=== PATIENT | male | born 1955 | race Caucasian/White ===

== ENCOUNTER 2020-05-09 07:10 | Outpatient (CLI) | payer BC, SELFPAY ==
[2020-05-09 07:39] LABS: Basophils Percent Auto 0.7 % (0.2-1.2); Eosinophils Absolute Auto 0.1 K/mm3 (0-0.3); Hematocrit 47.5 % (42.0-52.0); Hemoglobin 15.7 g/dL (14.0-18.0); Immature Granulocyte Absolute 0.03 K/mm3 (0.00-0.031); Immature Granulocyte Percent A 0.5 % (0-0.5); Lymphocytes Absolute Auto 2.26 K/mm3 (0.9-3.2); Lymphocytes Percent Auto 37.7 % (18.3-44.2); Mean Corpuscular HGB Conc 33.1 g/dl (32-36); Mean Corpuscular Hemoglobin 31.3 pg (26-34); Mean Corpuscular Volume 94.6 fl (80-100); Mean Platelet Volume 9.1 fl (7.4-10.4); Monocytes Absolute Auto 0.4 K/mm3 (0.1-0.6); Monocytes Percent Auto 7.3 % (2.6-8.5); Neutrophils Absolute Auto 3.1 K/mm3 (1.3-6.7); Neutrophils Percent Auto 51.8 % (45.5-73.1); Platelet Count Result 301 k/mm3 (150-375); Red Blood Count 5.02 M/mm3 (4.6-6.20); Red Cell Distribution Width 12.9 % (11.5-14.5)
[2020-05-09 07:55] LABS: Alanine Aminotransferase 61 U/L (4-50); Alkaline Phosphatase 83 U/L (38-126); Anion Gap 4 mmol/L (8-16); Aspartate Amino Transferase 43 U/L (17-59); Bilirubin,Total 0.6 mg/dL (0.2-1.3); Blood Urea Nitrogen 19 mg/dL (9-20); Calcium 9.2 mg/dL (8.4-10.2); Carbon Dioxide 31 mmol/L (22-30); Chloride 105 mmol/L (98-107); Estimated Glomerular Filt Rate > 60; Glucose 85 mg/dL (75-110); Potassium 4.5 mmol/L (3.4-5.0); Sodium 140 mmol/L (137-145)
== END 2020-05-09 07:11 | disposition home or self-care (01) ==
LOC: ANHLAB 07:11
PROVIDERS: Family Provider Internal Medicine; PCP Internal Medicine; Visit Provider Nurse Practitioner
DX: Z01.818 Encounter for other preprocedural examination (principal)
CPT/HCPCS: 36415; 80053; 85025

== ENCOUNTER 2020-05-12 11:56 | Outpatient (NON) | payer BC, SELFPAY ==
[2020-05-12 23:01] LABS: SARS-CoV-2 RNA PCR Negative
== END 2020-05-12 11:57 ==
LOC: ANHCOVIDDT 11:57
PROVIDERS: PCP Internal Medicine; Visit Provider Nurse Practitioner
DX: Z01.818 Encounter for other preprocedural examination (principal); Z20.822 Contact with and (suspected) exposure to COVID-19
CPT/HCPCS: C9803; U0003; U0005

== ENCOUNTER 2022-01-15 08:04 | Outpatient (CLI) | payer BC, SELFPAY ==
[2022-01-15 19:44] LABS: Basophils Percent Auto 0.5 % (0.2-1.2); Eosinophils Absolute Auto 0.1 K/mm3 (0-0.3); Eosinophils Percent Auto 1.8 % (0-4.4); Hematocrit 46.7 % (42.0-52.0); Hemoglobin 15.7 g/dL (14.0-18.0); Immature Granulocyte Absolute 0.02 K/mm3 (0.00-0.031); Immature Granulocyte Percent A 0.3 % (0-0.5); Lymphocytes Absolute Auto 2.66 K/mm3 (0.9-3.2); Lymphocytes Percent Auto 40.9 % (18.3-44.2); Mean Corpuscular HGB Conc 33.6 g/dl (32-36); Mean Corpuscular Hemoglobin 31.8 pg (26-34); Mean Corpuscular Volume 94.7 fl (80-100); Mean Platelet Volume 10.6 fl (7.4-10.4); Monocytes Absolute Auto 0.5 K/mm3 (0.1-0.6); Neutrophils Absolute Auto 3.2 K/mm3 (1.3-6.7); Neutrophils Percent Auto 48.5 % (45.5-73.1); Platelet Count Result 183 k/mm3 (150-375); Red Blood Count 4.93 M/mm3 (4.6-6.20); White Blood Count 6.5 K/mm3 (4.5-10.0)
[2022-01-15 19:50] LABS: Alanine Aminotransferase 37 U/L (6-50); Albumin Level 4.2 g/dL (3.5-5.1); Alkaline Phosphatase 81 U/L (38-126); Anion Gap 8 mmol/L (8-16); Aspartate Amino Transferase 49 U/L (17-59); Bilirubin,Total 1.1 mg/dL (0.2-1.3); Blood Urea Nitrogen 18 mg/dL (9-20); Calcium 8.8 mg/dL (8.4-10.2); Carbon Dioxide 28 mmol/L (22-30); Chloride 103 mmol/L (98-107); Cholesterol 175 mg/dL (0-200); Estimated Glomerular Filt Rate > 60; Glucose 74 mg/dL (65-110); HDL Direct 53 mg/dL; Potassium 4.2 mmol/L (3.4-5.0); Sodium 139 mmol/L (137-145); Triglycerides 69 mg/dL (<150)
[2022-01-15 20:01] LABS: LDL Cholesterol Direct 97 mg/dL
[2022-01-15 20:17] LABS: Prostate Specific Antigen 4.3 ng/mL (< OR = 4.0)
== END 2022-01-15 08:05 | disposition home or self-care (01) ==
LOC: ANHGOSHLAB 08:05
PROVIDERS: PCP Internal Medicine; Visit Provider Nurse Practitioner
DX: Z12.5 Encounter for screening for malignant neoplasm of prostate (principal); Z13.29 Encounter for screening for other suspected endocrine disorder; Z13.220 Encounter for screening for lipoid disorders; Z51.81 Encounter for therapeutic drug level monitoring; Z79.899 Other long term (current) drug therapy
CPT/HCPCS: 36415; 80053; 80061; 84153; 85025; G0103

== ENCOUNTER 2022-05-21 00:27 | Day surgery (SDC) | payer MEDICARE, SELFPAY ==
[2022-05-11 13:04] VITALS: BMI 22.8
--- NOTE | 2022-05-20 14:57 | PM.HPGS ---
History of Present Illness History of Present Illness Consent: Risks, benefits, and alternatives have been discussed and questions answered. Patient agrees to proceed with procedure. Chief complaint: neoplasm screening Narrative: Manish Kruse is a 66 year old male who was referred for colon cancer screening. His last colonoscopy was 10 years ago. Review of Systems Review of Systems: All systems reviewed & are unremarkable except as noted in HPI and below PMFSH Past Medical History Medical History Fractures Ulcer Surgical History Surgical History H/O cardiac radiofrequency ablation H/O knee surgery 2004 H/O shoulder surgery Family History Family History Father Malignant neoplasm of prostate Social History Social History Smoking status: Never smoker Alcohol intake: current Alcohol use details: once a week Substance use: never Substance use type: does not use Lack of Transportation: No Lack of Food: Never True Current Housing: I Have Housing Concerned About Future Housing: No Difficulty Paying Gas/Electric Bills: Decline to Answer Difficulty Paying for Meds: No Currently Unemployed: No Education: Trade/Vocational Certificate Difficulty w/ Childcare or Family Care: No Living arrangements: alone Spiritual care concerns: No Meds Home Medications and Allergies Home Medications Medication Instructions Recorded Confirmed Type No Home Medications 04/28/22 05/11/22 History Allergies Allergy/AdvReac Type Severity Reaction Status Date / Time No Known Allergies Allergy Verified 05/21/22 09:24 Exam Const: General: alert Orientation/consciousness: patient oriented x3 Resp: Auscultation: clear to auscultation bilaterally Cardio: Rhythm: regular rhythm GI: GI Palp: Yes Soft to palpation and No Tenderness to palpation present (GI) Neuro: General: patient oriented x3 Assessment and Plan Assessment and plan (1) Screening for colon cancer: Code(s): Z12.11 - Encounter for screening for malignant neoplasm of colon Status: Acute Assessment and Plan: Colonoscopy with possible biopsy or polypectomy or cautery or injection of substances.
[2022-05-21 09:25] VITALS: BP 123/88; PULSE 77; RESP 18; TEMP 36.5; O2SAT 98
--- NOTE | 2022-05-21 09:34 | P.PNAN_ITS ---
Anes - Initial Pre Proc Eval Procedure: Operation Date: 05/21/22 10:30 Proposed Procedures p Screening Colonoscopy - Flex Moore MD Date/Time: 05/21/22 09:34 Surgeon: Flex Moore MD Pre Op Diagnosis: neoplasm screening Patient Data Age: 66 Gender: M Height: 1.73 m Weight: 68 kg Last Vital Signs Temp 36.5 C 05/21/22 09:25 Pulse 77 05/21/22 09:25 Resp 18 05/21/22 09:25 BP 123/88 05/21/22 09:25 Pulse Ox 98 05/21/22 09:25 O2 Del Method Room Air 05/21/22 09:25 Allergies Allergy/AdvReac Type Severity Reaction Status Date / Time No Known Allergies Allergy Verified 05/21/22 09:24 Home Medications Medication Instructions Recorded Confirmed Type No Home Medications 04/28/22 05/11/22 History Patient hx anesthesia problems: none Family hx anesthesia problems: none Results Review: All pre-operative results and documents have been reviewed as part of the pre- operative evaluation. [facility] Past Medical History Medical History Fractures Ulcer Surgical History Surgical History H/O cardiac radiofrequency ablation H/O knee surgery 2004 H/O shoulder surgery Family History Family History Father Malignant neoplasm of prostate Social History Social History Smoking status: Never smoker Alcohol intake: current Alcohol use details: once a week Substance use: never Substance use type: does not use Lack of Transportation: No Lack of Food: Never True Current Housing: I Have Housing Concerned About Future Housing: No Difficulty Paying Gas/Electric Bills: Decline to Answer Difficulty Paying for Meds: No Currently Unemployed: No Education: Trade/Vocational Certificate Difficulty w/ Childcare or Family Care: No Living arrangements: alone Spiritual care concerns: No Anes - Eval Final PreProcedure Day of Procedure 05/21/22 09:34 Patient weight: normal Heart: regular rate and rhythm Lungs: clear to auscultation Airway: Mallampati scale class II and special considerations (loose right incisor) Neurological: alert and oriented Last oral intake: >/= 8 hours ASA classification: II Emergent: no Anesthetic plan: proceed Anesthesia type and monitoring: general GIVS and standard monitoring Results Review: All pre-operative results and documents have been reviewed as part of the pre- operative evaluation. Informed Consent: The patient's anesthetic plan and its attendant risks and benefits were discussed with the patient/family/POA. Questions were solicited and answers provided to the satisfaction of the patient/family/POA.
[2022-05-21] MEDS: LACTATED RINGERS 1,000 ML 150 ML IV CONT (09:35)
--- NOTE | 2022-05-21 09:36 | SUR.PREOP ---
ANESTHESIA MADE AWARE PT'S RIGHT FRONT TOOTH IS LOOSE, NO NEW ORDERS RECEIVED, ANESTHESIA SEEING PT.
[2022-05-21 10:48] VITALS: BP 116/76; PULSE 72; RESP 27; O2SAT 95
[2022-05-21 10:58] VITALS: BP 112/76; PULSE 66; RESP 27; O2SAT 95
[2022-05-21 11:08] VITALS: BP 126/76; PULSE 64; RESP 21; O2SAT 97
== END 2022-05-21 11:10 | disposition home or self-care (01) ==
PROVIDERS: PCP Internal Medicine; Visit Provider Internal Medicine Gastroenterology
PROC: 0DJD8ZZ Inspection of Lower Intestinal Tract, Via Natural or Artificial Opening Endoscopic (ICD-10-PCS; CPT 45378; principal; 2022-05-21 10:30)
DX: Z12.11 Encounter for screening for malignant neoplasm of colon (principal); K64.8 Other hemorrhoids
CPT/HCPCS: G0121; J2704; J7120

== ENCOUNTER 2022-05-25 14:13 | Outpatient (CLI) | payer MEDICARE, SELFPAY ==
--- NOTE | ~2022-05-25 | XR_ITS ---
EXAMINATION:XR_[id number]_CR DATE: 05/25/2022 14:24 INDICATION: Neck pain TECHNIQUE: AP, lateral, lateral swimmers and odontoid views of the cervical spine are provided. COMPARISON: 07/25/2013 FINDINGS: Alignment is normal. The odontoid process is intact. No fracture is identified. There is mo derate loss of intervertebral disc space height at C4-5, C5-6, and C6-7. Small degenerative osteophyt es project from the anterior endplates of multiple vertebral bodies. The vertebral body heights are m aintained. There is multilevel moderate facet and uncovertebral joint osteoarthritis. Prevertebral so ft tissues are normal. IMPRESSION: 1. Moderate cervical spondylosis without acute findings. Reviewed, dictated and finalized at location L. [employer]
== END 2022-05-25 14:14 ==
LOC: MICIMG 14:15
PROVIDERS: PCP Internal Medicine; Visit Provider Nurse Practitioner
DX: M47.892 Other spondylosis, cervical region (principal)
CPT/HCPCS: 72040

== ENCOUNTER 2022-07-05 12:30 | Outpatient (RCR) | payer MEDICARE, SELFPAY ==
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
--- NOTE | 2022-06-15 15:31 | PCPTNOTE ---
Patient arrived at appointment 45 minutes early and thought his appointment was sooner. Patient unable to stay for actually appointment time this date therefore canceled.
--- NOTE | 2022-06-28 11:09 | PCPTNOTE ---
Patient did not show up for scheduled appointment this date.
--- NOTE | 2022-07-09 15:36 | PCPTNOTE ---
Patient did not show up for scheduled re-evaluation this date. This is has last scheduled appointment. Call and left a voicemail to follow up with clinic. If we do not hear from him in a week he will be discharged.
--- NOTE | 2022-07-30 15:12 | PTOPDC ---
Assessment and note entered by Angie Rodas, PT, DPT Evaluation Information Assessment Status Discharge - Pt Not Present Diagnosis neck pain Onset 05/24/22 Subjective Information Called and LVM for patient on 07/09/22 for him to follow up regarding his progress, have not heard back from him. He will be discharged at this time. Assessment PT Clinical Summary Pt completed 5 visits of therapy from 06/09/22 to . He has not returned to therapy since and will now be discharged.
== END 2022-07-30 15:51 | disposition home or self-care (01) ==
LOC: ANHGOSHPT 12:30
PROVIDERS: PCP Internal Medicine; Visit Provider Nurse Practitioner
DX: M54.2 Cervicalgia (principal); V89.2XXA Person injured in unspecified motor-vehicle accident, traffic, initial encounter
CPT/HCPCS: 97014; 97110; 97112; 97140; 97161; 99199; G0283

== ENCOUNTER 2023-03-09 08:01 | Outpatient (CLI) | payer MEDICARE, SELFPAY ==
[2023-03-09 14:18] LABS: Basophils Percent Auto 0.3 % (0.2-1.2); Eosinophils Absolute Auto 0.1 K/mm3 (0-0.3); Eosinophils Percent Auto 1.5 % (0-4.4); Hematocrit 51.2 % (42.0-52.0); Hemoglobin 16.4 g/dL (14.0-18.0); Immature Granulocyte Absolute 0.08 K/mm3 (0.00-0.031); Immature Granulocyte Percent A 1.3 % (0-0.5); Lymphocytes Percent Auto 35.4 % (18.3-44.2); Mean Corpuscular Hemoglobin 31.2 pg (26-34); Mean Corpuscular Volume 97.3 fl (80-100); Mean Platelet Volume 10.5 fl (7.4-10.4); Monocytes Absolute Auto 0.5 K/mm3 (0.1-0.6); Monocytes Percent Auto 8.4 % (2.6-8.5); Neutrophils Absolute Auto 3.1 K/mm3 (1.3-6.7); Neutrophils Percent Auto 53.1 % (45.5-73.1); Platelet Count Result 192 k/mm3 (150-375); Red Blood Count 5.26 M/mm3 (4.6-6.20); White Blood Count 5.9 K/mm3 (4.5-10.0)
[2023-03-09 14:45] LABS: Alanine Aminotransferase 47 U/L (6-50); Albumin Level 4.2 g/dL (3.5-5.1); Alkaline Phosphatase 93 U/L (38-126); Anion Gap 10 mmol/L (8-16); Aspartate Amino Transferase 39 U/L (17-59); Bilirubin,Total 0.9 mg/dL (0.2-1.3); Blood Urea Nitrogen 18 mg/dL (9-20); Calcium 9.5 mg/dL (8.4-10.2); Carbon Dioxide 27 mmol/L (22-30); Chloride 102 mmol/L (98-107); Cholesterol 205 mg/dL (0-200); Estimated Glomerular Filt Rate > 60; Glucose 79 mg/dL (65-110); HDL Direct 51 mg/dL; Potassium 4.2 mmol/L (3.4-5.0); Sodium 139 mmol/L (137-145); Triglycerides 104 mg/dL (<150)
[2023-03-09 14:59] LABS: LDL Cholesterol Direct 110 mg/dL
[2023-03-09 15:02] LABS: Prostate Specific Antigen 4.6 ng/mL (< OR = 4.0)
[2023-03-12 18:32] LABS: Vitamin D 1,25 (OH)2 Total 26 pg/mL (18-72); Vitamin D2 1,25 (OH)2 <8 pg/mL; Vitamin D3 1,25 (OH)2 26 pg/mL
[2023-03-12 19:49] LABS: PSA, Free 1.02 ng/mL; Percent Free Prostate Spec Ag 20 % (>25)
== END 2023-03-09 08:02 | disposition home or self-care (01) ==
PROVIDERS: Nurse Practitioner; PCP Internal Medicine; Visit Provider Nurse Practitioner Family
DX: R97.20 Elevated prostate specific antigen [PSA] (principal); I10 Essential (primary) hypertension; Z12.5 Encounter for screening for malignant neoplasm of prostate; E55.9 Vitamin D deficiency, unspecified; R39.15 Urgency of urination
CPT/HCPCS: 36415; 80053; 80061; 82652; 84153; 84154; 85025; 87086

== ENCOUNTER 2023-06-20 07:54 | Outpatient (CLI) | payer MEDICARE, SELFPAY ==
--- NOTE | ~2023-06-20 | NM_ITS ---
EXAMINATION: NM bone scan whole body DATE: 06/20/2023 11:30 INDICATION: Prostate cancer TECHNIQUE: 25.2 mCi Tc-99m HDP was administered intravenously. Delayed whole-body scintigrams were o btained. COMPARISON: CT abdomen pelvis dated 06/20/2023 FINDINGS: Likely degenerative joint centered uptake at the bilateral acromioclavicular joints, left greater fatemeh n right and at the medial compartments of the bilateral knees, right greater than left. No other foci of suspicious bone uptake to suggest metastatic disease. IMPRESSION: 1. No evident osseous metastatic disease. Reviewed, dictated and finalized at location B.
--- NOTE | ~2023-06-20 | CT_ITS ---
EXAMINATION: CT abdomen pelvis w con DATE: 06/20/2023 08:23 INDICATION: Prostate cancer TECHNIQUE: Computed tomography (CT) of the abdomen and pelvis was performed with 100 mL Omnipaque-350 intravenous contrast. Automated exposure control and iterative reconstruction technique were employe d. The dose-length product was 686.17 mGy-cm. COMPARISON: None FINDINGS: Mild dependent atelectasis in bilateral lower lobes. Heart size is normal. Atherosclerotic coronary a rtery calcific lesion. No pericardial or pleural effusion. Liver, gallbladder, spleen, pancreas, bila teral adrenal glands and left kidney are normal. 1.8 cm parapelvic cyst at the lower pole of the righ t kidney. Large amount of stool scattered throughout the colon. No bowel obstruction. Bladder is norm al. Prostatomegaly measuring 5.1 x 4.6 cm. Nonspecific asymmetric enlargement of the right seminal ve sicle relative to the left which could be related to either direct invasion or obstruction of the gla nd from reported primary prostate cancer. No free intraperitoneal gas or fluid. No pathologically enl arged abdominal or pelvic lymphadenopathy. There is calcified atherosclerosis of the aorta and many o f the other arteries. Moderate to severe thoracolumbar spondylosis. Mild bilateral hip osteoarthritis . Nonaggressive appearing likely degenerative cystic change with nonuniform thinning sclerotic margin s at the superolateral margin of the right femoral head. There are couple small densely sclerotic lik anders bone islands at the left femoral head. IMPRESSION: 1. Prostatomegaly with asymmetric enlargement of the right seminal vesicle the bladder which could be related to reported primary prostate cancer. No pathologically enlarged lymphadenopathy or other les ions suspicious for metastatic disease. Reviewed, dictated and finalized at location B. IMPRESSION: 1. Prostatomegaly with asymmetric enlargement of the right seminal vesicle the bladder which could be related to reported primary prostate cancer. No patholog ically enlarged lymphadenopathy or other lesions suspicious for metastatic dise ase.
[2023-06-20 08:26] LABS: Estimated Glomerular Filt Rate > 60
== END 2023-06-20 07:55 | disposition home or self-care (01) ==
PROVIDERS: PCP Internal Medicine; Visit Provider Urology
DX: N40.0 Benign prostatic hyperplasia without lower urinary tract symptoms (principal); C61 Malignant neoplasm of prostate
CPT/HCPCS: 74177; 78306; A9503; Q9967

== ENCOUNTER 2023-08-10 13:40 | Outpatient (CLI) | payer MEDICARE, SELFPAY ==
--- NOTE | ~2023-08-10 | MR_ITS ---
EXAMINATION: MR pelvis wo/w con DATE: 08/10/2023 15:13 INDICATION: Prostate cancer. TECHNIQUE: Magnetic resonance imaging (MRI) of the pelvis was performed without and with 14 mL MultiH ance intravenous contrast. COMPARISON: CT abdomen and pelvis 06/20/2023 FINDINGS: The prostate is mildly enlarged. There are no pathologically enlarged lymph nodes. There are no dilat ed loops of bowel. There is severe lumbar spondylosis. IMPRESSION: 1. Mildly enlarged prostate. No evidence of metastatic disease. Reviewed, dictated and finalized at location A.
== END 2023-08-10 13:41 | disposition home or self-care (01) ==
PROVIDERS: PCP Internal Medicine; Visit Provider Radiology Radiation Oncology
DX: C61 Malignant neoplasm of prostate (principal); N40.0 Benign prostatic hyperplasia without lower urinary tract symptoms
CPT/HCPCS: 72197; A9577

== ENCOUNTER 2023-09-28 11:44 | Outpatient (CLI) | payer MEDICARE, SELFPAY | END 2023-09-28 11:45 | disposition home or self-care (01) | LOC: ANHLAB 11:46 | PROVIDERS: PCP Internal Medicine; Visit Provider Radiology Radiation Oncology | DX: Z51.0 Encounter for antineoplastic radiation therapy (principal); C61 Malignant neoplasm of prostate | CPT/HCPCS: 87045; 87427; 87449 ==

== ENCOUNTER 2024-03-13 01:12 | Day surgery (SDC) | payer MEDICARE, SELFPAY ==
[2024-03-02 10:32] VITALS: BMI 23.1
[2024-03-13 08:01] VITALS: BP 135/91; PULSE 66; RESP 18; TEMP 36.4; O2SAT 99
[2024-03-13] MEDS: LACTATED RINGERS 1,000 ML 150 ML IV CONT (08:11)
--- NOTE | 2024-03-13 08:46 | WPDANESEPPF ---
Anes - Initial Pre Proc Eval Procedure: Operation Date: 03/13/24 09:00 Proposed Procedures p Colonoscopy - Carlos Lopez MD Date/Time: 03/13/24 08:46 Surgeon: Carlos Lopez MD Pre Op Diagnosis: diarrhea, change in bowel habit, symptoms and sign Patient Data Age: 68 Gender: M Height: 1.73 m Weight: 68.1 kg Last Vital Signs Temp 36.4 C 03/13/24 08:01 Pulse 66 03/13/24 08:01 Resp 18 03/13/24 08:01 BP 135/91 H 03/13/24 08:01 Pulse Ox 99 03/13/24 08:01 O2 Del Method Room Air 03/13/24 08:01 Allergies Allergy/AdvReac Type Severity Reaction Status Date / Time No Known Allergies Allergy Verified 03/13/24 08:00 Home Medications Medication Instructions Recorded Confirmed Type Balance Of Nature Mtv 1 tab-cap PO DAILY 03/02/24 03/13/24 History Patient hx anesthesia problems: none Family hx anesthesia problems: none Results Review: All pre-operative results and documents have been reviewed as part of the pre-operative evaluation. [facility] Past Medical History Medical History Diarrhea Fractures Prostate cancer Tenesmus Ulcer Surgical History Surgical History H/O cardiac radiofrequency ablation H/O knee surgery 2004 H/O prostate biopsy H/O shoulder surgery Family History Family History Father Malignant neoplasm of prostate Social History Social History Smoking status: Never smoker Alcohol intake: current Drinks per week: 2 Alcohol use details: once a week Substance use: never Substance use type: does not use Living arrangements: alone Spiritual care concerns: No Anes - Eval Final PreProcedure Day of Procedure 03/13/24 08:46 Patient weight: normal Heart: regular rate and rhythm Lungs: clear to auscultation Airway: Mallampati scale class II Neurological: alert and oriented Last oral intake: >/= 8 hours ASA classification: III Emergent: no Anesthetic plan: proceed Anesthesia type and monitoring: general GIVS and standard monitoring Results Review: All pre-operative results and documents have been reviewed as part of the pre-operative evaluation. Informed Consent: The patient's anesthetic plan and its attendant risks and benefits were discussed with the patient/family/POA. Questions were solicited and answers provided to the satisfaction of the patient/family/POA.
--- NOTE | 2024-03-13 08:57 | WPDHPUPDATE1 ---
History and Physical Update Update Date/Time: 03/13/24 08:57 History and Physical has been reviewed, including an updated exam of the patient. There are NO changes in the patient's condition. Risks, benefits, and alternatives have been discussed and questions answered. Patient agrees to proceed with procedure.
[2024-03-13 09:11] VITALS: BP 116/73; PULSE 65; RESP 22; O2SAT 94
[2024-03-13 09:21] VITALS: BP 127/70; PULSE 64; RESP 20; O2SAT 94
[2024-03-13 09:31] VITALS: BP 119/80; PULSE 62; RESP 18; O2SAT 93
--- NOTE | 2024-03-13 09:50 | SUR.PHASEII ---
Discharge delayed due to ride not at hospital.
== END 2024-03-13 09:58 | disposition home or self-care (01) ==
PROVIDERS: PCP Nurse Practitioner; Referring Provider Nurse Practitioner Family; Visit Provider Internal Medicine Gastroenterology
PROC: 0DJD8ZZ Inspection of Lower Intestinal Tract, Via Natural or Artificial Opening Endoscopic (ICD-10-PCS; CPT 45378; principal; 2024-03-13 09:00)
DX: K64.8 Other hemorrhoids (principal); R19.8 Other specified symptoms and signs involving the digestive system and abdomen; N52.9 Male erectile dysfunction, unspecified; R35.0 Frequency of micturition; Z98.890 Other specified postprocedural states; Z92.3 Personal history of irradiation; Z85.46 Personal history of malignant neoplasm of prostate; Z86.79 Personal history of other diseases of the circulatory system; Z80.42 Family history of malignant neoplasm of prostate
CPT/HCPCS: 45380; 88305; J7120

== ENCOUNTER 2024-06-13 08:00 | Outpatient (RCR) | payer MEDICARE, SELFPAY ==
--- NOTE | 2024-05-09 09:49 | OPREHPOC ---
Outpatient Therapy Plan of Care This is a Multidisciplinary Plan of Care that may contain components documented by all disciplines (PT, OT, and ST.) PT Problem 1 PT Problem #1 Knowledge Deficit PT Goal 1 Goal / Goal Update 1. Pt to be IND with issued HEP Target Visit 10 PT Problem 2 PT Problem #2 Impaired Range of Motion PT Goal 1 Goal / Goal Update 1. pt to improve jaja cervical lateral flexion to 35 deg jaja 2. Pt to improve jaja shoulder flexion to 120 deg 3. Pt to improve jaja shoulder abduction to 110 deg 4. Pt to report pain free cervical rotation when during. PT Problem 3 PT Problem #3 Impaired Functional Mobility PT Goal 1 Goal / Goal Update 1. pt to be able to lift 10lb overhead without an increase in pain. Target Visit 10
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
--- NOTE | 2024-05-23 10:41 | PCPTNOTE ---
Patient was canceled this date due to therapist being out of clinic with illness.
--- NOTE | 2024-05-25 09:03 | PCPTNOTE ---
Patient was canceled this date due to therapist out with illness.
--- NOTE | 2024-06-05 09:05 | OPREHPOC ---
Outpatient Therapy Plan of Care This is a Multidisciplinary Plan of Care that may contain components documented by all disciplines (PT, OT, and ST.) PT Problem 1 PT Problem #1 Knowledge Deficit PT Goal 1 Goal / Goal Update 1. Pt to be IND with issued HEP 06/05/24: 1. met Target Visit 10 Progress Met PT Problem 2 PT Problem #2 Impaired Range of Motion PT Goal 1 Goal / Goal Update 1. pt to improve jaja cervical lateral flexion to 35 deg jaja 2. Pt to improve jaja shoulder flexion to 120 deg 3. Pt to improve jaja shoulder abduction to 110 deg 4. Pt to report pain free cervical rotation when during. 06/05/24: 1-4. slow progress Target Visit 10 Progress Not Met PT Problem 3 PT Problem #3 Impaired Functional Mobility PT Goal 1 Goal / Goal Update 1. pt to be able to lift 10lb overhead without an increase in pain. 06/05/24: 1. not met d/t ROM limitations Target Visit 10 Progress Not Met
--- NOTE | 2024-06-05 09:05 | PTOPPROG ---
Assessment and note entered by Angie Rodas, PT, DPT Evaluation Information Assessment Status Progress Diagnosis cervicalgia M54.2 ICD-10 Condition Codes (PT) Cervicalgia M54.2 Subjective Information Pt states his neck is a little bit better. He states his motion is better and his discomfort has decreased some. States his low back has started to bother him more recently. Assessment PT Clinical Summary Pt presents to therapy today for his progress report following 6 visits of skilled therapy to treat his diagnosis of neck pain. He demonstrates mild improvements in his active shoulder and cervical ROM but this is still significantly decreased from functional values. He continues to have decreased cervical and thoracic joint mobility. Continuation of skilled therapy services are indicated to improve movement mechanics, improve ROM, and to improve overall functional mobility. Plan of Care Interventions Electrical Stimulation,Hot Pack/Cold Pack,Manual Therapy,Mechanical Traction,Neuro Re-education, Patient/Caregiver Education,Therapeutic Activities ,Therapeutic Exercise PT Services Indicated Yes Treatment Frequency and 2x/wk for 4 visits, cont POC Duration These treatments will address the objective and functional deficits as defined above. The patient will be advanced safely and appropriately in order for the patient to progress towards his/her prior level of function. Additional exercises will be introduced and as well as a comprehensive home exercise program upon discharge, if needed, ?to ensure carryover of functional gains achieved in the clinic. This treatment plan has been reviewed and agreement upon by the patient.
--- NOTE | 2024-06-08 15:05 | PCPTNOTE ---
Patient no showed to appointment this date. Called and left voicemail.
--- NOTE | 2024-07-17 08:34 | PTOPDC ---
Assessment and note entered by Angie Rodas, PT, DPT Evaluation Information Assessment Status Discharge - Pt Not Present Diagnosis cervicalgia M54.2 ICD-10 Condition Codes (PT) Cervicalgia M54.2 Subjective Information Pt will be discharged d/t poor therapy attendance. Pt completed 7 visits since 05/09/24 and has not attended since 06/13/24. Have called and LVM with pt on three occasions requesting to schedule without a call back. Pt notified via voicemail that if he would like to return he will need a new order. Assessment PT Clinical Summary Discharge from therapy.
== END 2024-07-17 09:40 | disposition home or self-care (01) ==
LOC: ANHGOSHPT 08:00
PROVIDERS: PCP Nurse Practitioner; Visit Provider Nurse Practitioner
DX: M54.2 Cervicalgia (principal)
CPT/HCPCS: 97110; 97140; 97161; 97530

== ENCOUNTER 2024-08-02 13:53 | Outpatient (CLI) | payer MEDICARE, SELFPAY ==
--- OUTSIDE RECORDS SUMMARY | 2024-08-02 15:02 | XMS_ITS | Clinical Summary ---
Author Organization [facility] Address [address] [place] [address] Care Team Providers Care Tube Washer Name Role Phone Unavailable Primary Care Provider Unavailabl e Source Comments [facility],non-owned Affiliates and Associated Physician Practices is amultiple site organization consisting of ambulatory clinics and hospital sitesin [place], [place], [place] and [place]. This disclosure is being madepursuant to the Care Everywhere program and may not contain all information available regarding this patient. 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 Gender Identity Not on file Sexual Orientation Not on file Plan of Treatment Health Maintenance Due Date Last Done Comments COLOGUARD (AGES 45-75) - COL ON CA SCREENING 1957 COLON MONITORING 1957 COLONOSCOPY - COLON CA SCREENING 1957 CT COLONOGRAPHY - COLON CA SCREENING 1957 Colorectal Cancer Screening 1957 FIT - COLON CA SCREENING 1957 FLEX SIG - COLON CA SCREENING 1957 LIPID TESTING 1957 HEPATITIS C SCREENING 06/17/1975 DTAP/TDAP/TD VACCINES (1 - Tdap) 1976 PNEUMOCOCCAL VACCINE 50+ (1 of 1 - PCV) 06/22/2007 ZOSTER VACCINE (1 of 2) 06/22/2007 COVID-19 VACCINE (1 - 2023-2 5 season) 2023 DEPRESSION SCREENING 04/11/2024 MEDICARE AWV CALENDAR YEAR 2024 INFLUENZA VACCINE (Season Ended) 2024 Respiratory Syncytial Virus (RSV) Vaccine Pt: or over 60 yrs (1 - 1-dose 75+ series) 2032 HEPATITIS B VACCINE Aged Out No longe r eligible based on patient's age to complete this topic HIB VACCINE Aged Out No longer eligi ble based on patient's age to complete this topic HPV VACCINE Aged Out No longer eligi ble based on patient's age to complete this topic MENINGOCOCCAL (Group B) VACC INE SHARED DECISION-MAKING Aged Out No longer eligibl e based on patient's age to complete this topic MENINGOCOCCAL GROUPS A/C/Y/W VACCINE Aged Out No longer eligible b ased on patient's age to complete this topic Procedures Procedure Name Priority Date/Time Associated Diagnosis Comments DERMATOPATHOLOGY Routine 06/28/2024 12:0 0 AM CDT from Last 3 Months Results * DERMATOPATHOLOGY (06/28/2024 12:00 AM CDT) Case Report Dermatopathology Report Case: [id number] Authorizing Provider: Jeffrey Lamb Jr., MD Collected: 06/28/2024 12:00 AM Ordering Location: [facility] - Received: 06/29/2024 12:43 PM DermPath Lab Pathologist: Kiara Morillo MD Specimen: Skin, left nasal ala 12:48 PM CDT DERMATOPATHOLOGY LABORATORY Final Diagnosis Specimen A. SKIN, left nasal ala: INTRADERMAL MELANOCYTIC NEVUS, ERODED (D22.39) 12:48 PM CDT DERMATOPATHOLOGY LABORATORY Clinical History Fibrous Papule vs BCC vs Wart; SCC 12:48 PM CDT DERMATOPATHOLOGY LABORATORY Gross Description Specimen A: Received is one formalin filled container labeled with the patient's name and designated left nasal ala. The specimen consists of a shave biopsy measuring 5x4x1 mm. Jar 0. 12:48 PM CDT DERMATOPATHOLOGY LABORATORY Microscopic Description Specimen A. SKIN, left nasal ala: The epidermis is eroded. There are nests of cytologically bland melanocytes within the dermis that mature with depth. 12:48 PM CDT DERMATOPATHOLOGY LABORATORY Disclaimer An external and internal positive and negative controls are appropriate for the histochemical, immunohistochemical and immunofluorescence stain(s) in this case (if any), except where stated explicitly. The performance characteristics of the stain(s) cited in this report were developed and its performance characteristic determined by the Dermatopathology Laboratory at [facility], directed by Dr. Honorio Barrow. These tests need not be, and therefore are not, approved by the [place] Food and Drug Administration. The tests are used for clinical purposes. Billing Codes Specimen Charges Stain Charges 17248 1 12:48 PM CDT DERMATOPATHOLOGY LABORATORY Embedded Images 12:48 PM CDT DERMATOPATHOLOGY LABORATORY Pathology/Cytolog y TISSUE SPECIMEN FROM SKIN / Unknown 06/28/2024 06/29/2024 12:43 PM CDT Jeffrey Lamb Jr., MD LAB - PATHOLOGY/CYTOLOG Y ORDERABLES Final Result DERMATOPATHOLOGY LABORATORY [facility] - Department of Dermatology [facility] [address] [place] [address], [address] [place] [address], [facility] [phone] from Last 3 Months Insurance [employer] SELF PAY NO INSURANCE Member Subscriber Plan / Payer (Ef fective for All Dates) Name:Oz Mari Member ID:Not on file Relation to Subscriber:Not on file Name:OZ MARI Subscriber ID:Not on file (Home) Address: [address] [place] [id number] Payer ID:Not on file Group ID:Not on file Type:Self Pay Address: [place], [place] [employer] MEDICARE ADV HMO & PPO
--- OUTSIDE RECORDS SUMMARY | 2024-08-02 15:02 | XMS_ITS | Continuity of Care Document ---
Author Organization [facility] Address [address] [place] [address] Phone Care Team Providers Care Sugar Grinder Name Role Phone Nolan Roberts MD Unavailable Unavailable Allergies, Adverse Reactions, Alerts Substance Reaction Status Criticality No Known Allergies Active No Inform ation Procedures Procedure Date Office/outpatient visit,est, [facility] 2012 Supplemental Report X-ray exam both knees, standing 013 X-ray exam knee, 1 or 2 views 3 Independent Medical Examination DAVID I M E No Show Appointment Work/medical disability examination DAVID X-ray exam of knee, 1 or2 views 011 X-ray exam of both knees, standing Prolonged serv, w/o contact, 1st hr Advance Directives Directive Yes / No Effective Date File Name Resuscitation Not Answered N/A N/A Life Support Not Answered N/A N/A Intubation Not Answered N/A N/A Antibiotics Not Answered N/A N/A IV Fluid Support Not Answered N/A N/A Tube Feed Not Answered N/A N/A Other Directive N/A N/A WARNING:The information contained in this section is historical and is provided for information only and does not constitute a legal document or any assurance that the information is still accurate. Please verify the information with the mcclelland of the legal document before using it for clinical purposes. Encounters Encounter Description Practice Location Reason(s) For Visit Diagnoses Date Provider Providers Copied on Encounter Office/outpat ient visit,est, [facility], [address], [id number], tel:[phone] [facility] JOINT PAIN-L/LEGLOC PRIM OSTEOART-L/LE G 3 Armando Francisco. [address], [id number] , [place]. tel: [phone] Independent Medical Examination [facility], [address] [place] [address], [id number], [place] tel:[phone] [facility] JOINT PAIN-L/LEGART HROPATHY NOS-L/LEG Jul-3 0 3 Armando Francisco. [address], [id number] , [place]. tel: [phone] [facility], [address] [place] [address], [id number], tel:[phone] [facility] No Information 3 Armando Francisco. [address], [id number] , [place]. tel: [phone] Work/medical disability examination [facility], [address] [place] [address], [id number], [place] tel:[phone] [facility] JOINT PAIN-L/LEG 1 Armando Francisco. [address] [place] [address], [id number] , [place]. tel: [phone] Family History Family Member Type Diagnosis Age At Onset No Information Payers Payer name Insurance type Covered alliance party ID Kane key(s) [employer] [id number] Social History Type Description Quantity Date Captured Comments Alcohol Use Details Unknown Caffeine Use Details Unknown Tobacco Use Status No Information Smoking Status Never smoker Sex Male Chief Complaint And Reason For Visit No Information Reason For Referral Reason For Referral No Information Plan Of Treatment Date Type Action Status Referral Ordered: X-ray exam both knees, standing ordered Referral Ordered: X-ray exam knee, 1 or 2 views RT ordered Referral Ordered: Arthrogram of knee joint Appointment date/timeframe: 08/23/2012 ordered History Of Present Illness Encounter Date Complaint History Of Prese nt Illness No Information Functional Status Date Functional Assessmen t No Information Instructions Date Instruction Additional Infor mation No Information Assessments Type Assessment Date No Information Patient Care Teams Name Effective Dates (start - stop) Status Members No Information
--- OUTSIDE RECORDS SUMMARY | 2024-08-02 15:02 | XMS_ITS | Encounter Summary ---
Author Organization [facility] Address [address] [place] [address] Care Team Providers Care Chair Maker Name Role Phone Unavailable Primary Care Provider Unavailabl e Encounter Details Date Type Department Care Team (Late st Contact Info) Description 06/29/2024 Lab Requisition [facility] - DermPath Lab 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 Gender Identity Not on file Sexual Orientation Not on file documented as of this encounter Plan of Treatment Not on file documented as of this encounter Procedures Procedure Name Priority Date/Time Associated Diagnosis Comments DERMATOPATHOLOGY Routine 06/28/2024 12:0 0 AM CDT documented in this encounter Results * DERMATOPATHOLOGY (06/28/2024 12:00 AM CDT) Case Report Dermatopathology Report Case: [id number] Authorizing Provider: Jeffrey Lamb Jr., MD Collected: 06/28/2024 12:00 AM Ordering Location: [facility] - Received: 06/29/2024 12:43 PM [...] characteristic determined by the Dermatopathology Laboratory at [facility], directed by Dr. Honorio Barrow. These tests need not be, and therefore are not, approved by the [place] Food and Drug Administration. The tests are used for clinical purposes. Billing Codes Specimen Charges Stain Charges 98671 1 12:48 PM CDT DERMATOPATHOLOGY LABORATORY Embedded Images 12:48 PM CDT DERMATOPATHOLOGY LABORATORY Pathology/Cytolog y TISSUE SPECIMEN FROM SKIN / Unknown 06/28/2024 06/29/2024 12:43 PM CDT Jeffrey Lamb Jr., MD LAB - PATHOLOGY/CYTOLOG Y ORDERABLES Final Result DERMATOPATHOLOGY LABORATORY [facility] - Department of Dermatology [address], [address] [phone] documented in this encounter Visit Diagnoses Not on filedocumented in this encounter
--- OUTSIDE RECORDS SUMMARY | 2024-08-02 15:02 | XMS_ITS | CONTINUITY OF CARE DOCUMENT ---
Author Name bekah godfrey Address Unknown Organization [facility] Address [address] [place] [address] Phone [phone] Care Team Providers Care Applique Cutter Name Role Phone Satinder Huffman MD Unavailable KIMO TORRES DO Unavailable [phone] KIMO TORRES DO Unavailable PROBLEMS Condition Status Date Provider Notes PVC's active Ratna Clemens RN Palpitations active Ratna Clemens RN Dizziness active Ratna Clemens RN Ventricular tachycardia active Tim toth DO SVT active Tim Roebrts DO ENCOUNTERS Date Type Provider Location Encounter Diag nosis - In-person encounter Office Visit Satinder Huffman MD [place] [facility] - In-person encounter Office Visit [facility] - In-person encounter Office Visit [facility] SVT - In-person encounter Office Visit [facility] - In-person encounter Office Visit [facility] - In-person encounter Office Visit [facility] - In-person encounter Office Visit [facility] Ventricular tachycardia VITAL SIGNS Date Observation Value Provider height E&M 68 [in_i] Danielle Eduardo francisco Body Mass Index (Ratio) 23.87 kg/m2 Denn is [facility] weight E&M 157 [lb_av] Tashaleilani Wu- Nishant blood pressure, diastolic 78 mm[Hg] Billy Wu-Nishant blood pressure, systolic 130 mm[Hg] Casandra joycelyn uW-Nishant oxygen saturation, oximetry 96 % Tashaleilani Wu-Nishant pulse rate 64 /min Tashaleilani Wu- Nishant height E&M 68 [in_i] Tasha Wu- Nishant Body Mass Index (Ratio) 24.02 kg/m2 Denn is [facility] blood pressure, resting No Thaddeus Rosene blood pressure, diastolic 80 mm[Hg] Billy Wu-Nishant blood pressure, systolic 120 mm[Hg] Casandra joycelyn Wu-Nishant oxygen saturation, oximetry 98 % Tashaleilani Wu-Nishant pulse rate 61 /min Tashaleilani Wu- Nishant weight E&M 158 [lb_av] Tashaleilani Wu- Nishant height E&M 68 [in_i] Tashaleilani Wu- Nishant Body Mass Index (Ratio) 24.63 kg/m2 Denn is [facility] blood pressure, diastolic 80 mm[Hg] Da wilman [place] blood pressure, systolic 122 mm[Hg] Dac ia Adam oxygen saturation, oximetry 98 % Nevaeh Adam respiratory rate E&M 16 /min Nevaeh V oss pulse rate 77 /min Nevaeh Adam weight E&M 162 [lb_av] Nevaeh Adam height E&M 68 [in_i] Nevaeh [place] Body Mass Index (Ratio) 25.09 kg/m2 Denn is [facility] blood pressure, diastolic 80 mm[Hg] Juan Francisco Alvaradoby blood pressure, systolic 140 mm[Hg] Kishore Li oxygen saturation, oximetry 98 % Renay Li pulse rate 83 /min Renay Li respiratory rate E&M 17 /min Renay Li weight E&M 165 [lb_av] Renay Li blood pressure, cuff size regular Juan Francisco Li height E&M 68 [in_i] Renay Li Body Mass Index (Ratio) 24.63 kg/m2 Mark Longoria NP oxygen saturation, oximetry 97 % Kathystity Rubina blood pressure, diastolic 76 mm[Hg] Ch astity Rubina blood pressure, systolic 120 mm[Hg] Kathy stity Rubina respiratory rate E&M 18 /min Chastit y Rubina weight E&M 162 [lb_av] Chastity Rubina pulse rate 75 /min Chastity Rubina height E&M 68 [in_i] Kathystity Rubina Body Mass Index (Ratio) 24.02 kg/m2 Selene Myerscock respiratory rate E&M 18 /min Josie Vasquez pulse rate 74 /min Josie Vasquez oxygen saturation, oximetry 98 % Josie Vasquez blood pressure, diastolic 74 mm[Hg] Papito romulo Vasquez blood pressure, systolic 120 mm[Hg] Timothy duke Vasquez blood pressure, cuff size regular Papito romulo Vasquez weight E&M 158 [lb_av] Josie Vasquez height E&M 68 [in_i] Josie Vasquez ALLERGIES No Known Drug Allergies RESULTS Date Observation Value Provider Reference Range Interpretation Location basophils as percent of blood leukocytes 0.3 % [facility] Normal eosinophils as percent of blood leukocytes 1.1 % [facility] Normal monocyte count, blood 6.8 % [facility] Normal lymphocyte count, blood 31.1 % [facility] Normal neutrophils as percent of blood leukocytes 60.7 % [facility] Normal basophils, absolute, manual 21 cells/mcL [facility] 0-200 Normal eosinophils, absolute, manual 77 cells/mcL [facility] 15-500 Normal monocytes, absolute, manual 476 cells/mcL [facility] 200-950 Normal lymphocytes, absolute 2177 CELLS/UL [facility] 850-3900 Normal Absolute Neutrophil count 4249 cells/mcL [facility] 1701-9829 Normal mean platelet volume 9.9 fL [facility] 7.5-12.5 Normal platelet count 267 THOUSAND/UL [facility] 140-400 Normal red blood cell distribution width 12.4 % [facility] 11.0-15.0 Normal mean corpuscular hemoglobin concentration, RBC 33.8 G/DL [facility] 32.0-36.0 Normal mean corpuscular hemoglobin, RBC 31.6 pg [facility] 27.0-33.0 Normal mean corpuscular volume, RBC 93.6 fL [facility] 80.0-100.0 Normal hematocrit, blood 46.8 % [facility] 38.5-50.0 Normal hemoglobin electrophoresis, blood 15.8 [facility] 13.2-17.1 Normal erythrocyte (RBC) count 5.00 MILLION/UL [facility] 4.20-5.80 Normal leukocyte (white blood cells) count, blood 7.0 THOUSAND/UL [facility] 3.8-10.8 Normal prothrombin time (patient) 10.6 s [facility] 9.0-11.5 Normal international normalized ratio (INR) 1.0 [facility] Normal hyaline casts, urine NONE SEEN [facility] NONE SEEN Normal bacteria, urine microscopy NONE SEEN [facility] NONE SEEN Normal epithelial cells, urine NONE SEEN [facility] < OR = 5 Normal RBC urine by microscopy NONE SEEN [facility] < OR = 2 Normal WBC urine on microscopy NONE SEEN /HPF [facility] < OR = 5 Normal protein, urine, semiquantitative (dipstick) NEGATIVE [facility] NEGATIVE Normal blood in urine (hemoglobin) by dipstick NEGATIVE [facility] NEGATIVE Normal ketones, urine, by test strip NEGATIVE [facility] NEGATIVE Normal bilirubin, urine NEGATIVE [facility] NEGATIVE Normal glucose, urine, semiquantitative NEGATIVE [facility] NEGATIVE Normal pH, urine, semiquantitative 5.5 [facility] 5.0-8.0 Normal specific gravity, urine 1.027 [facility] 1.001-1.035 Normal appearance, urine CLEAR [facility] CLEAR Normal urine color YELLOW [facility] YELLOW Normal calcium, serum 9.3 mg/dL [facility] 8.6-10.3 Normal carbon dioxide, venous blood 29 mmol/L [facility] 20-32 Normal chloride, serum 103 mmol/L [facility] 98-110 Normal potassium, serum 4.2 mmol/L [facility] 3.5-5.3 Normal sodium, serum 141 mmol/L [facility] 135-146 Normal urea nitrogen/creatinine ratio, serum NOT APPLICABLE (calc) [facility] 6- Estimated Glomerular Filtration Rate (calc) 85 mL/min/{1.73_ m2} [facility] > OR = 60 Normal creatinine, serum 1.08 mg/dL [facility] 0.70-1.25 Normal urea nitrogen, blood 16 mg/dL [facility] 7-25 Normal blood glucose, random 96 mg/dL [facility] 65-139 Normal calcium, serum 9.5 mg/dL [facility] 8.6-10.2 carbon dioxide, venous blood 25 mmol/L [facility] 18-29 chloride, serum 102 mmol/L [facility] 96-106 potassium, serum 4.6 mmol/L [facility] 3.5-5.2 sodium, serum 142 mmol/L [facility] 641-459 1260/03 /23 urea nitrogen/creatinine ratio, serum 19 [facility] 10-24 eGFR if 99 mL/min/{1.73_ m2} [facility] >59 eGFR if not 86 mL/min/{1.73_ m2} [facility] >59 creatinine, serum 0.96 mg/dL [facility] 0.76-1.27 urea nitrogen, blood 18 mg/dL [facility] 8-27 blood glucose, random 82 mg/dL [facility] 65-99 prothrombin time (patient) 10.7 s [facility] 9.1-12.0 international normalized ratio (INR) 1.0 [facility] 0.8-1.2 platelet count 280 X10E3/UL [facility] 126-439 6489/03 /23 red blood cell distribution width 13.3 % [facility] 12.3-15.4 mean corpuscular hemoglobin concentration, RBC 32.9 G/DL [facility] 31.5-35.7 mean corpuscular hemoglobin, RBC 31.1 pg [facility] 26.6-33.0 mean corpuscular volume, RBC 95 fL [facility] 79-97 hematocrit, blood 48.9 % [facility] 37.5-51.0 hemoglobin, blood 16.1 g/dL [facility] 13.0-17.7 erythrocyte (RBC) count 5.17 X10E6/UL [facility] 4.14-5.80 leukocyte count, blood 6.6 X10E3/UL [facility] 3.4-10.8 HISTORY OF MEDICATION USE No Known Medication SOCIAL HISTORY Date Observation Value Provider number of grandchildren Satinder Roberts smoking status Never smoker Tasha Tinoco social history reviewed E&M revi ewed - no changes required Tasha Edouard social history E&M S moking History: Mateo harris has never smoked. Ratna Clemens RN smoking status Never smoker Tasha Amish Tinoco social history reviewed E&M revi ewed - no changes required Tasha Edouard social history reviewed E&M revi ewed - no changes required Tim Roberts DO social history E&M S moking History: Mateo harris has never smoked. Tim Roberts DO smoking status Never smoker Nevaeh Adam social history reviewed E&M revi ewed - no changes required Tim Roberts DO social history E&M S moking History: Mateo harris has never smoked. Tim Roberts DO smoking status Never smoker Renay Li smoking status Never smoker Dalila christianson social history reviewed E&M revi ewed - no changes required Tim Roberts DO social history E&M S moking History: Mateo harris has never smoked. Tim Roberts DO number of grandchildren Tim Roberts D O Tim Roberts DO smoking status Never smoker Josie Vasquez FAMILY HISTORY Family Member Condition Paternal Grandmother Family History of D iabetes: Father Family History of Di abetes: INSURANCE PROVIDERS Payer name Policy type / Coverage type [place] [employer] party ID [facility] [id number] ADVANCE DIRECTIVES Name Date DISCUSSED - NO DECISION MADE TREATMENT PLAN Date Name Performer [id number],WSatinder MD [id number],WSatinder MD Electrophysiology Satinder doll MD Electrophysiology Satinder doll MD Electrophysiology Tim bryson DO Electrophysiology: i nducible NSVT, RVOT, max 7 secs, never sustained despite Isuprel. Tim Roberts DO Electrophysiology:EK G with type II Brugada, reported symptoms do not seem to be consistent with those of Brugada syndrome. P rocainamide challenge showed no evidence of Brugada. Continues with recurring palpitations, tachycardia, and near-syncope. Now s/p EPS RFA on 10/11/18 F indings: Baseline eccentric activation over concealed L POST AP, Inducible ORT via concealed L POST AP. Transseptal punture & 3-D map & RFA of AP, w/no SVT or AP conduction after RF despite Isuprel f elling better since RFA (see also HPI), no recurring sustained palps or syncope Tim Roberts Electrophysiology:He underwent EPS 10/2018 with findings of concealed L post AP with inducible SVT and had successful ablation of the AP. he has done well since that time with no recurring sustained palpitations and no syncope S deena the ablation, he complains of palpitations that lasts only a couple of seconds and occur once a week. He has had no syncope or near syncope associated with this. Will get 30 day tele to look for evidence of reocurance Tim Roberts Electrophysiology -r eview/sign~M--fxd 02/20/19/TS:He underwent EPS 10/2018 with findings of concealed L post AP with inducible SVT and had successful ablation of the AP. he has done well since that time with no recurring sustained palpitations and no syncope Tim Myersmeri RAGLAND Electrophysiology -r eview/sign~M--fxd 02/20/19/TS:inducible NSVT, RVOT, max 7 secs, never sustained despite Isuprel. Tim Myersmeri RAGLAND Electrophysiology -r eview/sign~M--fxd 02/20/19TS:EKG with type II Brugada, reported symptoms do not seem to be consistent with those of Brugada syndrome. Procainamide challenge showed no evidence of Brugada. Continues with recurring palpitations, tachycardia, and near-syncope. Now s/p EPS RFA on 10/11/18 F indings: Baseline eccentric activation over concealed L POST AP, Inducible ORT via concealed L POST AP. Transseptal punture & 3-D map & RFA of AP, w/no SVT or AP conduction after RF despite Isuprel f elling better since RFA (see also HPI), no recurring sustained palps or syncope Tim Armando RAGLAND Electrophysiology -r eview/sign~M--fxd 02/20/19/TS:see above Ratna Clemens GILBERT Electrophysiology -r eview/sign~M--fxd 02/20/19/TS:Echo May 2016 with LVEF 65% and trace mitral and tricuspid regurgitation. Negative cardiac cath one week ago. Has worn tooling specialist twice in the recent past, NSVT up to 6 beats noted E KG with type II Brugada, reported symptoms do not seem to be consistent with those of Brugada syndrome. Attempted EPS 07/2017, had to be terminated due to equipment trouble at [facility]. Procainamide challenge showed no evidence of Brugada. Continues with recurring palpitations, tachycardia, and near-syncope. Now s/p EPS RFA on 10/11/18 F indings: Baseline eccentric activation over concealed L POST AP, Inducible ORT via concered L POST AP, RVOT VT, never sustained >7secs ICE. Transseptal punture & 3-D map & RFA of AP, w/no SVT or AP conduction after RF despite Isuprel f elling better since RFA (see also HPI) Ratna Clemens GILBERT Electrophysiology fo llow up:Echo May 2016 with LVEF 65% and trace mitral and tricuspid regurgitation. Negative cardiac cath one week ago. Has worn tooling specialist twice in the recent past, nSVT up to 6 beats noted E KG with type II Brugada, reported symptoms do not seem to be consistent with those of Brugada syndrome. Attempted EPS 07/2017, had to be terminated due to equipment trouble at [facility]. Procainamide challenge showed no evidence of Brugada. Continues with recurring palpitations, tachycardia, and near-syncope. Will get EP possible ablation, possible ILR implant. Tim Roberts DO Electrophysiology fo llow up:Unclear etiology. He has had near syncope associated with palpitations. H e had a negative IV Procainamide challenge for possible Brugada. N o evidence of underlying structural heart disease. R ecent 14-day Telesentry 04/2018 with no significant arrhythmia. Will proceed with EPS, possible ablation, possible ILR. [employer]. Tim Roberts DO Electrophysiology:Ec ho May 2016 with LVEF 65% and trace mitral and tricuspid regurgitation. Negative cardiac cath one week ago. Has worn tooling specialist twice in the recent past, nSVT up to 6 beats noted E KG with type II Brugada, reported symptoms do not seem to be consistent with those of Brugada syndrome. Attempted EPS 07/2017, had to be terminated due to equipment trouble at [facility]. Procainamide challenge showed no evidence of Brugada. Continues with recurring palpitations, tachycardia, and near-syncope. Will get 14-day Telesentry, and then EP possible ablation, possible ILR implant. Tim Roberts EP faxed 3-30, lo:pt had refused EPS in past as above, but is now willling to have procedure Haim Hu CAR MECHANIC EP faxed 3-30, lo: E cho May 2016 with LVEF 65% and trace mitral and tricuspid regurgitation. Negative cardiac cath one week ago. Has worn tooling specialist twice in the recent past, nSVT up to 6 beats noted E KG with type II Brugada, reported symptoms do not seem to be consistent with those of Brugada syndrome. planned for EP study IV Procainamide challenge with the patient. 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 Having a spell while up on a ladder could be very detrimental. possible ILR implant Haim Longoria NP EP:see above Tim Roberts EP:Echo May 2016 wit h LVEF 65% and trace mitral and tricuspid regurgitation. Negative cardiac cath one week ago. Has worn tooling specialist twice in the recent past, nSVT up to 6 beats noted E KG with type II Brugada, reported symptoms do not seem to be consistent with those of Brugada syndrome. Discussed EP study IV Procainamide challenge with the patient. 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 Having a spell while up on a ladder could be very detrimental. Tim Sevier DO Date Name Stress Routine Complete Echo PARTIAL THROMBOPLAST IN TIME, ACTIVATED PROTHROMBIN TIME WIT H INR CBC (INCLUDES DIFF/P LT) BASIC METABOLIC PANE L W/EGFR CT Cardiac with cont rast (Pre-Ablation) ABLATION w/ Anesthes ia Mobile Cardiac Tele ABLATION w/ Anesthes ia ABLATION w/ Anesthes ia Mobile Cardiac Tele URINALYSIS, COMPLETE W/REFLEX TO CULTURE PROTHROMBIN TIME WIT H INR CBC (H/H, RBC, INDIC ES, WBC, PLT) BASIC METABOLIC PANE L W/EGFR HISTORY OF PROCEDURES Procedure Date Procedure Name Provider Procedure Notes S tatus EKG Satinder lau MD completed Schedule Followup Tim Sevier DO in 2-3 mon ths completed EKG Tim Sevier DO comple adam EKG Tim Sevier DO comple adam Schedule Followup Tim Sevier DO after EPS completed EKG Tim Sevier DO comple adam Event Monitor Tim Sevier DO com pleted Event Monitor Itm Sevier DO com pleted Schedule Followup Tim Sevier DO in 3 mo completed EKG Tim Sevier DO comple adam EKG Tim Sevier DO comple adam SNOMED-CT: [id number] Current Medications Documented Tim Sevier DO completed
== END 2024-08-02 13:54 | disposition home or self-care (01) ==
PROVIDERS: PCP Internal Medicine; Visit Provider Nurse Practitioner
DX: R05.3 Chronic cough (principal)
CPT/HCPCS: 94060; 94726; 94729

== ENCOUNTER 2024-08-07 10:39 | Outpatient (CLI) | payer MEDICARE, SELFPAY ==
--- OUTSIDE RECORDS SUMMARY | 2024-08-07 11:56 | XMS_ITS | CONTINUITY OF CARE DOCUMENT ---
Author Name bekah godfrey Address Unknown Organization [facility] Address [address] [place] [address] Phone [phone] Care Team Providers Care Manager Data Warehousing Name Role Phone Satinder Huffman MD Unavailable KIMO TORRES DO Unavailable KIMO TORRES DO Unavailable PROBLEMS Condition Status Date Provider Notes PVC's active Ratna Clemens RN Palpitations active Ratna Clemens RN Dizziness active Ratna Clemens RN Ventricular tachycardia active Tim toth DO SVT active Tim Roberts DO ENCOUNTERS Date Type Provider Location Encounter Diag nosis - In-person encounter Office Visit Satinder Huffman MD [facility] - In-person encounter Office Visit Tim [...] Mass Index (Ratio) 23.87 kg/m2 Denn is [facility] weight E&M 157 [lb_av] Tashaleilani Wu- Nishant blood pressure, diastolic 78 mm[Hg] Billy Wu-Nishant blood pressure, systolic 130 mm[Hg] Casandra joycelyn Wu-Nishant oxygen saturation, oximetry 96 % Tashaleilani Wu-Nishant pulse rate 64 /min Tashaleilani Wu- Nishant height E&M 68 [in_i] Tasha Wu- Nishant Body Mass Index (Ratio) 24.02 kg/m2 Denn is [facility] blood pressure, resting No Thaddues Rosene blood pressure, diastolic 80 mm[Hg] Billy Wu-Nishant blood pressure, systolic 120 mm[Hg] Casandra joycelyn Wu-Nishant oxygen saturation, oximetry 98 % Tashaleilani Wu-Nishant pulse rate 61 /min Tashaleilani Wu- Nishant weight E&M 158 [lb_av] Tashaleilani Wu- Nishant height E&M 68 [in_i] Tashaleilani Wu- Nishant Body Mass Index (Ratio) 24.63 kg/m2 Denn is [facility] blood pressure, diastolic 80 mm[Hg] Da wilman [place] blood pressure, systolic 122 mm[Hg] Dac ia Adam oxygen saturation, oximetry 98 % Nevaeh Adam respiratory rate E&M 16 /min Nevaeh V oss pulse rate 77 /min Nevaeh Adam weight E&M 162 [lb_av] Nevaeh Adam height E&M 68 [in_i] Nevaeh [place] Body Mass Index (Ratio) 25.09 kg/m2 Denn is [facility] blood pressure, diastolic 80 mm[Hg] Juan [...] Normal Absolute Neutrophil count 4249 cells/mcL [facility] 0604-4728 Normal mean platelet volume 9.9 fL [facility] [...] [facility] 3.5-5.2 sodium, serum 142 mmol/L [facility] 167-465 2753/03 /23 urea nitrogen/creatinine ratio, serum 19 [facility] 10-24 eGFR if 99 mL/min/{1.73_ m2} [facility] >59 eGFR if not 86 mL/min/{1.73_ m2} [facility] >59 creatinine, serum 0.96 mg/dL [facility] 0.76-1.27 urea nitrogen, blood 18 mg/dL [facility] 8-27 blood glucose, random 82 mg/dL [facility] 65-99 prothrombin time (patient) 10.7 s [facility] 9.1-12.0 international normalized ratio (INR) 1.0 [facility] 0.8-1.2 platelet count 280 X10E3/UL [facility] 176-337 5214/03 /23 red blood cell distribution width 13.3 [...] Payer name Policy type / Coverage type [place] [employer] party ID [facility] [id number] ADVANCE DIRECTIVES Name Date DISCUSSED - NO DECISION MADE TREATMENT PLAN Date Name Performer [id number],WSatinder MD [id number],WSatinder MD Electrophysiology Satinder doll MD Electrophysiology Satinder [...] cardiac cath one week ago. Has worn athletic monitor twice in the recent past, NSVT up [...] cardiac cath one week ago. Has worn athletic monitor twice in the recent past, nSVT up [...] cardiac cath one week ago. Has worn athletic monitor twice in the recent past, nSVT up to 6 beats noted E KG with type II Brugada, reported symptoms do not seem to be consistent with those of Brugada syndrome. Attempted EPS 07/2017, had to be terminated due to equipment trouble at [facility]. Procainamide challenge showed no evidence of Brugada. Continues with recurring palpitations, tachycardia, and near-syncope. Will get 14-day Telesentry, and then EP possible ablation, possible ILR implant. Tim Roberts EP faxed 3-30, lo:pt had refused EPS in past as above, but is now willling to have procedure Haim Hu DYNAMOMETER MECHANIC EP faxed 3-30, lo: E cho May 2016 with LVEF 65% and trace mitral and tricuspid regurgitation. Negative cardiac cath one week ago. Has worn athletic monitor twice in the recent past, nSVT up to 6 beats noted E KG with type II Brugada, reported symptoms do not seem to be consistent with those of Brugada syndrome. planned for EP study IV Procainamide challenge with the patient. 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 Having a spell while up on a ladder could be very detrimental. possible ILR implant Haim Longoria NP EP:see above Tim Roberts EP:Echo May 2016 wit h LVEF 65% and trace mitral and tricuspid regurgitation. Negative cardiac cath one week ago. Has worn athletic monitor twice in the recent past, nSVT up to 6 beats noted E KG with type II Brugada, reported symptoms do not seem to be consistent with those of Brugada syndrome. Discussed EP study IV Procainamide challenge with the patient. 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 Having a spell while up on a ladder could be very detrimental. Tim Ponce DO Date Name Stress Routine Complete Echo [...] Satinder lau MD completed Schedule Followup Tim Ponce DO in 2-3 mon ths completed EKG Tim Ponce DO comple adam EKG Tim Ponce DO comple adam Schedule Followup Tim Ponce DO after EPS completed EKG Tim Ponce DO comple adam Event Monitor Tim Ponce DO com pleted Event Monitor Tim Ponce DO com pleted Schedule Followup Tim Ponce DO in 3 mo completed EKG Tim Ponce DO comple adam EKG Tim Ponce DO comple adam SNOMED-CT: [id number] Current Medications Documented Tim Ponce DO completed
--- OUTSIDE RECORDS SUMMARY | 2024-08-07 11:56 | XMS_ITS | Continuity of Care Document ---
Author Organization [facility] Address [address] [place] [address] Phone Care Team Providers Care Capital Project Engineer Name Role Phone Nolan Roberts MD Unavailable Unavailable Allergies, Adverse Reactions, Alerts Substance Reaction Status Criticality No Known Allergies Active No Inform ation Procedures Procedure Date Office/outpatient visit,[place], [facility] [place] Supplemental Report X-ray exam both knees, [...] Providers Copied on Encounter Office/outpat ient visit,[place], [facility] [place] [facility], [address], [id number], tel:[phone] [facility] JOINT PAIN-L/LEGLOC PRIM OSTEOART-L/LE G 3 Armando Francisco. [address], [id number] , [place]. tel: [phone] Independent Medical Examination [facility], [address] [place] [address], [id number], [place] tel:[phone] [facility] JOINT PAIN-L/LEGART HROPATHY NOS-L/LEG Jul-3 0 3 Armando Francisco. [address], [id number] , [place]. tel: [phone] [facility], [address] [place] [address], [id number], tel:[phone] [facility] No Information 3 Armando Francisco. [address], [id number] , [place]. tel: [phone] Work/medical disability examination [facility], [address] [place] [address], [id number], [place] tel:[phone] [facility] JOINT PAIN-L/LEG 1 Armando Francisco. [address] [place] [address], [id number] , [place]. tel: [phone] Family History Family Member Type Diagnosis Age At Onset No Information Payers Payer name Insurance type Covered constitution party ID Kane key(s) [employer] [id number] Social History Type Description Quantity Date Captured [...]
--- OUTSIDE RECORDS SUMMARY | 2024-08-07 11:56 | XMS_ITS | Clinical Summary ---
Author Organization [facility] Address [facility] [place] [address] Care Team Providers Care Baseball Pitcher Name Role Phone Patrice Aceves DO Primary Care Provider [phone] Allergies No known active allergies Medications ibuprofen 200 MG tablet Take 200 mg by mouth as needed for Pain. Active metoprolol succinate ER 25 MG 24 hr tablet Take 0.5 tablets (12.5 mg total) by mouth daily. 45 tablet 1 04/24/2021 Active Active Problems Problem Noted Date Diagnosed Date Supraventricular tachycardia ([facility]/HCC) 9 Chest pain at rest 07/28/2016 Overview (04/21/2021): Chest pain at rest Dizziness 07/28/2016 Overview (04/21/2021): Dizziness Palpitations VT (ventricular tachycardia) ([facility]/HCC HHS/HCC) PVC's (premature ventricular contractions) Family History Medical History Relation Comments Diabetes Father Prostate Cancer Father ICD Mother Diabetes Paternal Grandmother Relation Status Comments Father Alive Mother Alive Paternal Grandmother Sister 1 Alive Sister 2 Alive Social History Tobacco Use Types Packs/Day Years Used Date Smoking Tobacco: Never Smokeless Tobacco: Never Alcohol Use Standard Drinks/Week Comments Yes 0 (1 standard drink = 0.6 oz pur e alcohol) 1 per week Sex and Gender Information Value Date Recorded Sex Assigned at Not on file Legal Sex Male 5:24 PM CDT Gender Identity Not on file Sexual Orientation Not on file Occupation Industry Job Start Date Job End Date Retired Not on file Not on file Not on file Last Filed Vital Signs Vital Sign Reading Time Taken Comments Blood Pressure 130/80 04/24/2021 10:09 AM PARTY CHIEF Pulse 70 04/24/2021 10:09 AM PARTY CHIEF Temperature - - Respiratory Rate - - Oxygen Saturation 97% 04/24/2021 10:09 AM PARTY CHIEF Inhaled Oxygen Concentration - - Weight 71.2 kg (157 lb) 04/24/2021 10:09 AM PARTY CHIEF Height 172.7 cm (5' 8 ) 04/24/2021 10:09 AM PARTY CHIEF Body Mass Index 23.87 04/24/2021 10:09 AM PARTY CHIEF Plan of Treatment Health Maintenance Due Date Last Done Comments Colorectal Cancer Screening Colonoscopy (10 Years) 1955 Hepatitis C 06/22/1975 DTaP, Tdap and Td Vaccines ( 1 - Tdap) 1976 Pneumococcal Vaccine: 50+ Years (1 of 1 - PCV) 06/22/2007 Zoster Vaccines (1 of 2) 06/22/2007 COVID-19 Vaccine (3 - 2023-2 5 season) 2023 08/01/2020, 07/12/2020 RSV Immunization or 60+ Years (1 - 1-dose 75+ series) 2032 Meningococcal B Vaccine Aged Out No l onger eligible based on patient's age to complete this topic Meningococcal Vaccine Aged Out No manish miguelito eligible based on patient's age to complete this topic RSV Immunizations Under 20 Months Aged Out No longer eligible b ased on patient's age to complete this topic Insurance MEDICAID Care Teams Baseball Pitcher Relationship Specialty Start Date End Date Patrice Aceves DO [address] [place] [address] PCP - General INTERNAL MEDICINE 12/29/20
--- OUTSIDE RECORDS SUMMARY | 2024-08-07 11:56 | XMS_ITS | Encounter Summary ---
Author Organization [facility] Address [facility] [place] [address] Care Team Providers Care Steam Room Attendant Name Role Phone Patrice Aceves DO Primary Care Provider [phone] Encounter Details Date Type Department Care Team (Late st Contact Info) Description 01/08/2021 Abstract [facility] [address] Bryan Lauren MA Social History Tobacco Use Types Packs/Day Years Used Date Smoking Tobacco: Never Smokeless Tobacco: Never Alcohol Use Standard Drinks/Week Comments Yes 0 (1 standard drink = 0.6 oz pur e alcohol) Sex and Gender Information Value Date Recorded Sex Assigned at Not on file Legal Sex Male 5:24 PM CDT Gender Identity Not on file Sexual Orientation Not on file documented as of this encounter Plan of Treatment Not on file documented as of this encounter Procedures Procedure Name Priority Date/Time Associated Diagnosis Comments CBC (OUTSIDE LAB) Routine 05/09/2020 documented in this encounter Results * CBC (OUTSIDE LAB) (05/09/2020) WBC 6.0 HGB 15.7 HCT 47.5 PLT 301 05/09/2020 us Doc [facility] Abstract LAB-OUTSIDE/ABSTRACTED Final Result documented in this encounter Visit Diagnoses Not on filedocumented in this encounter Care Teams Steam Room Attendant Relationship Specialty Start Date End Date Patrice Aceves DO [address] [facility] [address] [place] [address] PCP - General INTERNAL MEDICINE 12/29/20 documented as of this encounter
--- OUTSIDE RECORDS SUMMARY | 2024-08-07 11:56 | XMS_ITS | Clinical Summary ---
Author Organization [facility] Address [address] [facility] [place] [address] Care Team Providers Care Row Boss Name Role Phone Unavailable Primary Care Provider Unavailabl e Source Comments [facility],non-owned Affiliates and Associated Physician Practices is amultiple site organization consisting of ambulatory clinics and hospital sitesin [place], [place], [place] and [place]. This disclosure is being madepursuant to the Care Everywhere program and may not contain all information available regarding this patient. 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 Honorio Barrow. These tests need not be, and therefore are not, approved by the [place] Food and Drug Administration. The tests are used for clinical purposes. Billing Codes Specimen Charges Stain Charges 33264 1 12:48 PM CDT DERMATOPATHOLOGY LABORATORY Embedded Images 12:48 PM CDT DERMATOPATHOLOGY LABORATORY Pathology/Cytolog y TISSUE SPECIMEN FROM SKIN / Unknown 06/28/2024 06/29/2024 12:43 PM CDT Jeffrey Lamb Jr., MD LAB - PATHOLOGY/CYTOLOG Y ORDERABLES Final Result DERMATOPATHOLOGY LABORATORY [facility] - Department of Dermatology [facility] Medicine [address] [place] [address], [address] [place] [address], [facility] [phone] from Last 3 Months Insurance [employer] SELF PAY NO INSURANCE Member Subscriber Plan / Payer (Ef fective for All Dates) Name:Oz Mari Member ID:Not on file Relation to Subscriber:Not on file Name:OZ MARI Subscriber ID:Not on file (Home) Address: [address] [place] [id number] Payer ID:Not on file Group ID:Not on file Type:Self Pay Address: [place], [place] [employer] MEDICARE ADV HMO & PPO
--- OUTSIDE RECORDS SUMMARY | 2024-08-07 11:56 | XMS_ITS | Encounter Summary ---
Author Organization [facility] Address [address] [facility] [place] [address] Care Team Providers Care International Specialist Name Role Phone Unavailable Primary Care Provider Unavailabl e Encounter Details Date Type Department Care Team (Late st Contact Info) Description 06/29/2024 Lab Requisition [facility] - DermPath Lab [address] 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 Gender Identity Not on file Sexual Orientation Not on file documented as of this encounter Plan of Treatment Not on file documented as of this encounter Procedures Procedure Name Priority Date/Time Associated Diagnosis Comments DERMATOPATHOLOGY Routine 06/28/2024 12:0 0 AM CDT documented in this encounter Results * DERMATOPATHOLOGY (06/28/2024 12:00 AM CDT) Case Report Dermatopathology Report Case: [id number] Authorizing Provider: Jeffrey Lamb Jr., MD Collected: 06/28/2024 12:00 AM Ordering Location: [facility] - Received: 06/29/2024 12:43 PM [...] characteristic determined by the Dermatopathology Laboratory at [facility], directed by Dr. Honorio Barrow. These tests need not be, and therefore are not, approved by the [place] Food and Drug Administration. The tests are used for clinical purposes. Billing Codes Specimen Charges Stain Charges 06561 1 12:48 PM CDT DERMATOPATHOLOGY LABORATORY Embedded Images 12:48 PM CDT DERMATOPATHOLOGY LABORATORY Pathology/Cytolog y TISSUE SPECIMEN FROM SKIN / Unknown 06/28/2024 06/29/2024 12:43 PM CDT Jeffrey Lamb Jr., MD LAB - PATHOLOGY/CYTOLOG Y ORDERABLES Final Result DERMATOPATHOLOGY LABORATORY [facility] - Department of Dermatology [address], [address] [phone] documented in this encounter Visit Diagnoses Not on filedocumented in this encounter
[2024-08-07 13:50] LABS: Basophils Percent Auto 0.7 % (0.2-1.2); Eosinophils Absolute Auto 0.1 K/mm3 (0-0.3); Eosinophils Percent Auto 2.1 % (0-4.4); Hematocrit 47.5 % (42.0-52.0); Hemoglobin 15.1 g/dL (14.0-18.0); Immature Granulocyte Absolute 0.02 K/mm3 (0.00-0.031); Immature Granulocyte Percent A 0.5 % (0-0.5); Lymphocytes Absolute Auto 1.34 K/mm3 (0.9-3.2); Lymphocytes Percent Auto 31.2 % (18.3-44.2); Mean Corpuscular HGB Conc 31.8 g/dl (32-36); Mean Corpuscular Hemoglobin 31.3 pg (26-34); Mean Corpuscular Volume 98.5 fl (80-100); Mean Platelet Volume 10.3 fl (7.4-10.4); Monocytes Absolute Auto 0.4 K/mm3 (0.1-0.6); Monocytes Percent Auto 9.3 % (2.6-8.5); Neutrophils Absolute Auto 2.4 K/mm3 (1.3-6.7); Neutrophils Percent Auto 56.2 % (45.5-73.1); Platelet Count Result 197 k/mm3 (150-375); Red Blood Count 4.82 M/mm3 (4.6-6.20); Red Cell Distribution Width 13.5 % (11.5-14.5); White Blood Count 4.3 K/mm3 (4.5-10.0)
[2024-08-07 14:58] LABS: Alanine Aminotransferase 29 U/L (6-50); Albumin Level 4.2 g/dL (3.5-5.1); Alkaline Phosphatase 89 U/L (38-126); Anion Gap 8 mmol/L (4-12); Aspartate Amino Transferase 42 U/L (17-59); Bilirubin,Total 1.2 mg/dL (0.2-1.3); Blood Urea Nitrogen 17 mg/dL (9-20); Carbon Dioxide 28 mmol/L (22-30); Chloride 103 mmol/L (98-107); Cholesterol 222 mg/dL (0-200); Estimated Glomerular Filt Rate > 60; Glucose 85 mg/dL (65-110); HDL Direct 59 mg/dL; Potassium 4.3 mmol/L (3.4-5.0); Sodium 139 mmol/L (137-145); Triglycerides 94 mg/dL (<150)
[2024-08-07 15:09] LABS: LDL Cholesterol Direct 114 mg/dL
[2024-08-07 15:32] LABS: Prostate Specific Antigen 0.9 ng/mL (< OR = 4.0)
[2024-08-11 03:18] LABS: Tissue Transglutaminase IgA Ab <1.0 U/mL; Tissue Transglutaminase IgG Ab <1.0 U/mL
== END 2024-08-07 10:40 | disposition home or self-care (01) ==
PROVIDERS: Internal Medicine Gastroenterology; PCP Internal Medicine; Visit Provider Nurse Practitioner
DX: E78.5 Hyperlipidemia, unspecified (principal); R97.20 Elevated prostate specific antigen [PSA]; R19.4 Change in bowel habit; R19.7 Diarrhea, unspecified; Z13.220 Encounter for screening for lipoid disorders; Z13.29 Encounter for screening for other suspected endocrine disorder
CPT/HCPCS: 36415; 80053; 80061; 83516; 84153; 85025

== ENCOUNTER 2024-09-10 09:29 | Outpatient (CLI) | payer MEDICARE, SELFPAY ==
--- NOTE | ~2024-09-10 | XR_ITS ---
Lumbosacral Spine: AP and lateral views Clinical History: Pain Findings: The normal lordotic curve is maintained. Grade 1 anterolisthesis of L4 over L5 noted. Ther e is mild chronic wedging deformity of T12 and L1. There is severe facet arthropathy throughout the l umbar spine. There are mild degenerative changes. The sacroiliac joints are normally outlined. Impression: Moderate to advanced degenerative spondylosis, as above. Grade 1 anterolisthesis of L4 over L5. Mild anterior chronic wedging deformities of T12 and L1. Reviewed, dictated and finalized at location M. Impression: Moderate to advanced degenerative spondylosis, as above. Grade 1 anterolisthesis of L4 over L5. Mild anterior chronic wedging deformities of T12 and L1.
--- OUTSIDE RECORDS SUMMARY | 2024-09-10 09:50 | XMS_ITS | Clinical Summary ---
Author Organization [facility] Address [address] [place] [address] Care Team Providers Care Director Of Dietary Name Role Phone Unavailable Primary Care Provider Unavailabl e Source Comments [facility],non-owned Affiliates and Associated Physician Practices is amultiple site organization consisting of ambulatory clinics and hospital sitesin [place], [place], [place] and [place]. This disclosure is being madepursuant to the Care Everywhere program and may not contain all information available regarding this patient. 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 Honorio Barrow. These tests need not be, and therefore are not, approved by the [place] Food and Drug Administration. The tests are used for clinical purposes. Billing Codes Specimen Charges Stain Charges 86076 1 12:48 PM CDT DERMATOPATHOLOGY LABORATORY Embedded Images 12:48 PM CDT DERMATOPATHOLOGY LABORATORY Pathology/Cytolog y TISSUE SPECIMEN FROM SKIN / Unknown 06/28/2024 06/29/2024 12:43 PM CDT Jeffrey Lamb Jr., MD LAB - PATHOLOGY/CYTOLOG Y ORDERABLES Final Result DERMATOPATHOLOGY LABORATORY [facility] - Department of Dermatology [facility] [address] [place] [address], [address] [place] [address], [facility] [phone] from Last 3 Months Insurance [employer] SELF PAY NO INSURANCE Member Subscriber Plan / Payer (Ef fective for All Dates) Name:Oz Mari Member ID:Not on file Relation to Subscriber:Not on file Name:OZ MARI Subscriber ID:Not on file (Home) Address: [address] [place] [phone] Payer ID:Not on file Group ID:Not on file Type:Self Pay Address: [place], [place] [employer] MEDICARE ADV HMO & PPO
--- OUTSIDE RECORDS SUMMARY | 2024-09-10 09:50 | XMS_ITS | CONTINUITY OF CARE DOCUMENT ---
Author Name bekah godfrey Address Unknown Organization [facility] Address [address] [facility] [facility] [address] [place] [address] Phone [phone] Care Team Providers Care Shoulder Boner Name Role Phone Satinder Huffman MD Unavailable KIMO TORRES DO Unavailable [phone] KIMO TORRES DO Unavailable [phone] PROBLEMS Condition Status Date Provider Notes PVC's active Ratna Clemens RN Palpitations active Ratna Clemens RN Dizziness active Ratna Clemens RN Ventricular tachycardia active Tim toth DO SVT active Tim Roberts DO ENCOUNTERS Date Type Provider Location Encounter Diag nosis - In-person encounter Office Visit Satinder Huffman MD [facility] Office - In-person encounter Office Visit Tim [...] Mass Index (Ratio) 23.87 kg/m2 Denn is [facility] weight E&M 157 [lb_av] Tashaleilani Wu- Nishant blood pressure, diastolic 78 mm[Hg] Billy Wu-Nishant blood pressure, systolic 130 mm[Hg] Casandra joycelyn Wu-Nishant oxygen saturation, oximetry 96 % Tashaleilani Wu-Nishant pulse rate 64 /min Tashaleilani Wu- Nishant height E&M 68 [in_i] Tasha Wu- Nishant Body Mass Index (Ratio) 24.02 kg/m2 Denn is [facility] blood pressure, resting No Thaddeus Rosene blood pressure, diastolic 80 mm[Hg] Billy Wu-Nishant blood pressure, systolic 120 mm[Hg] Casandra joycelyn Wu-Nishant oxygen saturation, oximetry 98 % Tashaleilani Wu-Nishant pulse rate 61 /min Tashaleilani Wu- Nishant weight E&M 158 [lb_av] Tashaleilani Wu- Nishant height E&M 68 [in_i] Tashaleilani Wu- Nishant Body Mass Index (Ratio) 24.63 kg/m2 Denn is [facility] blood pressure, diastolic 80 mm[Hg] Da wilman [place] blood pressure, systolic 122 mm[Hg] Dac ia Adam oxygen saturation, oximetry 98 % Nevaeh Adam respiratory rate E&M 16 /min Nevaeh V oss pulse rate 77 /min Nevaeh Adam weight E&M 162 [lb_av] Nevaeh Adam height E&M 68 [in_i] Nevaeh [place] Body Mass Index (Ratio) 25.09 kg/m2 Denn is [facility] blood pressure, diastolic 80 mm[Hg] Juan [...] Normal Absolute Neutrophil count 4249 cells/mcL [employer] [id number] Normal mean platelet volume 9.9 fL [employer] [...] [employer] 3.5-5.2 sodium, serum 142 mmol/L [employer] 004-907 8659/03 /23 urea nitrogen/creatinine ratio, serum 19 [employer] 10-24 eGFR if 99 mL/min/{1.73_ m2} [employer] >59 eGFR if not 86 mL/min/{1.73_ m2} [employer] >59 creatinine, serum 0.96 mg/dL [employer] 0.76-1.27 urea nitrogen, blood 18 mg/dL [employer] 8-27 blood glucose, random 82 mg/dL [employer] 65-99 prothrombin time (patient) 10.7 s [employer] 9.1-12.0 international normalized ratio (INR) 1.0 [employer] 0.8-1.2 platelet count 280 X10E3/UL [employer] 426-266 0536/03 /23 red blood cell distribution width 13.3 [...] Payer name Policy type / Coverage type [place] red green party ID [facility] [id number] ADVANCE DIRECTIVES Name Date DISCUSSED - NO DECISION MADE TREATMENT PLAN Date Name Performer [id number],WSatinder MD [id number],WSatinder MD Electrophysiology Satinder doll MD Electrophysiology Satinder [...] cardiac cath one week ago. Has worn library monitor twice in the recent past, NSVT [...] cardiac cath one week ago. Has worn library monitor twice in the recent past, nSVT [...] cardiac cath one week ago. Has worn library monitor twice in the recent past, nSVT up to 6 beats noted E KG with type II Brugada, reported symptoms do not seem to be consistent with those of Brugada syndrome. Attempted EPS 07/2017, had to be terminated due to equipment trouble at [facility]. Procainamide challenge showed no evidence of Brugada. Continues with recurring palpitations, tachycardia, and near-syncope. Will get 14-day Telesentry, and then EP possible ablation, possible ILR implant. Tim Roberts EP faxed 3-30, lo:pt had refused EPS in past as above, but is now willling to have procedure Haim Hu ACTIVITIES THERAPIST EP faxed 3-30, lo: E cho May 2016 with LVEF 65% and trace mitral and tricuspid regurgitation. Negative cardiac cath one week ago. Has worn library monitor twice in the recent past, nSVT up to 6 beats noted E KG with type II Brugada, reported symptoms do not seem to be consistent with those of Brugada syndrome. planned for EP study IV Procainamide challenge with the patient. 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 Having a spell while up on a ladder could be very detrimental. possible ILR implant Haim Longoria NP EP:see above Tim Roberts EP:Echo May 2016 wit h LVEF 65% and trace mitral and tricuspid regurgitation. Negative cardiac cath one week ago. Has worn library monitor twice in the recent past, nSVT up to 6 beats noted E KG with type II Brugada, reported symptoms do not seem to be consistent with those of Brugada syndrome. Discussed EP study IV Procainamide challenge with the patient. 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 Having a spell while up on a ladder could be very detrimental. Tim [place] DO Date Name Stress Routine Complete Echo [...] Satinder lau MD completed Schedule Followup Tim [place] DO in 2-3 mon ths completed EKG Tim [place] DO comple adam EKG Tim [place] DO comple adam Schedule Followup Tim [place] DO after EPS completed EKG Tim [place] DO comple adam Event Monitor Tim [place] DO com pleted Event Monitor Tim [place] DO com pleted Schedule Followup Tim [place] DO in 3 mo completed EKG Tim [place] DO comple adam EKG Tim [place] DO comple adam SNOMED-CT: [id number] Current Medications Documented Tim [place] DO completed
--- OUTSIDE RECORDS SUMMARY | 2024-09-10 09:50 | XMS_ITS | Encounter Summary ---
Author Organization [facility] Address [address] [facility] [place] [address] Care Team Providers Care Brown Stock Washer Name Role Phone Unavailable Primary Care Provider Unavailabl e Encounter Details Date Type Department Care Team (Late st Contact Info) Description 06/29/2024 Lab Requisition [facility] - DermPath Lab [address] [facility] [facility] [place] [address] Jeffrey Lamb Jr., MD [address] [facility] [address] [place] [address] Social History Tobacco Use Types Packs/Day Years Used Date Smoking Tobacco: Never Assessed Sex and Gender Information Value Date Recorded Sex Assigned at Not on file 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 Gender Identity Not on file Sexual Orientation Not on file documented as of this encounter Plan of Treatment Not on file documented as of this encounter Procedures Procedure Name Priority Date/Time Associated Diagnosis Comments DERMATOPATHOLOGY Routine 06/28/2024 12:0 0 AM CDT documented in this encounter Results * DERMATOPATHOLOGY (06/28/2024 12:00 AM CDT) Case Report Dermatopathology Report Case: [id number] Authorizing Provider: Jeffrey Lamb Jr., MD Collected: 06/28/2024 12:00 AM Ordering Location: [facility] - Received: 06/29/2024 12:43 PM [...] characteristic determined by the Dermatopathology Laboratory at [facility], directed by Dr. Honorio Barrow. These tests need not be, and therefore are not, approved by the [place] Food and Drug Administration. The tests are used for clinical purposes. Billing Codes Specimen Charges Stain Charges 62100 1 12:48 PM CDT DERMATOPATHOLOGY LABORATORY Embedded Images 12:48 PM CDT DERMATOPATHOLOGY LABORATORY Pathology/Cytolog y TISSUE SPECIMEN FROM SKIN / Unknown 06/28/2024 06/29/2024 12:43 PM CDT Jeffrey Lamb Jr., MD LAB - PATHOLOGY/CYTOLOG Y ORDERABLES Final Result DERMATOPATHOLOGY LABORATORY [facility] - Department of Dermatology [address], [address] [phone] documented in this encounter Visit Diagnoses Not on filedocumented in this encounter
--- OUTSIDE RECORDS SUMMARY | 2024-09-10 09:50 | XMS_ITS | Continuity of Care Document ---
Author Organization [facility] Address [address] [place] [address] Phone Care Team Providers Care Chief Informatics Officer Name Role Phone Armando CARRANZA MD, Nolan Unavailable Unavaila ble Allergies, Adverse Reactions, Alerts Substance Reaction Status Criticality No Known Allergies Active No Inform ation Procedures Procedure Date Office/outpatient visit,est, mod 2012 Supplemental Report X-ray exam both knees, [...] Providers Copied on Encounter Office/outpat ient visit,est, mod [facility], [address], [id number], tel:[phone] [facility] JOINT PAIN-L/LEGLOC PRIM OSTEOART-L/LE G 3 Armando Francisco. [address], [id number] , [place]. tel: [phone] Independent Medical Examination [facility], [address] [place] [address], [id number], [place] tel:[phone] [facility] JOINT PAIN-L/LEGART HROPATHY NOS-L/LEG Jul-3 0 3 Armando Francisco. [address], [id number] , [place]. tel: [phone] [facility], [address] [place] [address], [id number], [place] tel:[phone] [facility] No Information 0 3 Armando Francisco. [address], [id number] , [place]. tel: [phone] Work/medical disability examination [facility], [address] [place] [address], [id number], [place] [phone] [facility] JOINT PAIN-L/LEG Jul- 1 Armando Francisco. [address], [id number] , [place]. tel: [phone] Family History Family Member Type Diagnosis Age At Onset No Information Payers Payer name Insurance type Covered constitution party ID Authoriza shaylaterry(s) [employer] [id number] Social History Type Description Quantity Date Captured [...]
== END 2024-09-10 09:30 | disposition home or self-care (01) ==
PROVIDERS: PCP Internal Medicine; Visit Provider Nurse Practitioner
DX: M47.818 Spondylosis without myelopathy or radiculopathy, sacral and sacrococcygeal region (principal); M43.16 Spondylolisthesis, lumbar region; M48.54XA Collapsed vertebra, not elsewhere classified, thoracic region, initial encounter for fracture; M48.56XA Collapsed vertebra, not elsewhere classified, lumbar region, initial encounter for fracture
CPT/HCPCS: 72100

== ENCOUNTER 2024-09-14 08:31 | Outpatient (CLI) | payer MEDICARE, SELFPAY ==
--- NOTE | ~2024-09-14 | MR_ITS ---
MRI of the lumbar spine Clinical History: Spondylosis Technique: Axial T2-weighted images, and sagittal T1-weighted, T2-weighted, and and T2 fat-sat images were acquired. Findings: No acute fracture identified. There is 4 mm anterolisthesis of L5 over S1. There is 4 mm re trolisthesis of L1 over L2. There is 3 mm retrolisthesis of L3 over L4. At L1-L2, there is severe degenerative distended. There is mild diffuse disc bulge and mild facet art hropathy. No central canal stenosis. There is moderate to advanced bilateral neural foraminal narrowi ng. At L2-L3, there is moderate degenerative distended. There is mild disc bulge and mild facet arthropat hy. No central canal stenosis. There is severe left neural foraminal narrowing, and moderate to advan farnaz right neural foraminal narrowing. At L3-L4, there is advanced degenerative disc narrowing. There is mild disc bulge and mild to moderat e facet arthropathy. No central canal stenosis. There is moderate bilateral neural foraminal narrowin g. At L4-L5, there is minimal disc bulge and mild facet arthropathy. No central canal stenosis or neural foraminal narrowing. At L5-S1, there is 3 mm anterolisthesis with mild disc bulge and severe facet arthropathy. No central canal stenosis. There is severe right neural foraminal narrowing, and moderate to advanced left neur al foraminal narrowing. Paravertebral soft tissues are unremarkable. Impression: Moderate to advanced degenerative spondylosis, as above, with multilevel neural foraminal narrowing p resent. Multiple grade 1 listheses in the lumbar spine, as above. Reviewed, dictated and finalized at location . Impression: Moderate to advanced degenerative spondylosis, as above, with multilevel neural foraminal narrowing present. Multiple grade 1 listheses in the lumbar spine, as above.
== END 2024-09-14 08:32 | disposition home or self-care (01) ==
LOC: GOSHIMG 08:32
PROVIDERS: PCP Internal Medicine; Visit Provider Nurse Practitioner
DX: M47.896 Other spondylosis, lumbar region (principal); M43.16 Spondylolisthesis, lumbar region
CPT/HCPCS: 72148

== ENCOUNTER 2025-02-13 08:42 | Outpatient (CLI) | payer MEDICARE, SELFPAY ==
--- NOTE | ~2025-02-13 | XR_ITS ---
XR lumbar spine 2-3V Indication: M54.50 - Low back pain, unspecified Comparison: None Findings: Grade 1 anterolisthesis of L5 on S1, no fracture is identified. Grade 1 retrolisthesis of L1 on L2 and L2 on L3. Moderate to severe loss of disc height throughout. Soft tissues unremarkable Impression: No acute abnormality. Reviewed, dictated and finalized at location P. R CUTTER Impression: No acute abnormality.
== END 2025-02-13 08:43 | disposition home or self-care (01) ==
PROVIDERS: PCP Nurse Practitioner; Visit Provider Nurse Practitioner
DX: M43.17 Spondylolisthesis, lumbosacral region (principal); M43.16 Spondylolisthesis, lumbar region
CPT/HCPCS: 72100